=== PATIENT | female | born 2000 | race African-American/Black ===

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

== ENCOUNTER 2021-09-02 23:57 | Emergency (ER) | payer BC ==
[~2021-09-02] VITALS: Ht 157.5 cm; Wt 67.0 kg
[~2021-09-02 23:57] MED LIST changes: +IBUPROFEN600 MG PO
[2021-09-03 00:56] LABS: IMMATURE GRANULOCYTES 0.1 % (0.0-5.0); MEAN CELL VOLUME 93.3 fL CALC (80.0-100.0); MEAN CORPUSCULAR HGB 30.1 pG CALC (26.0-32.0); MEAN CORPUSCULAR HGB CONC 32.2 g/dL CAL (32.0-36.0); NEUT# 5.85 thou/uL (2.00-7.15); RED BLOOD COUNT 3.56 mill/uL (4.20-5.60); RED CELL DISTRI WIDTH 12.7 % (11.5-15.5)
[2021-09-03 01:00] LABS: HEMATOCRIT 33.2 % (37.0-47.0); HEMOGLOBIN 10.7 g/dl (12.0-16.0)
[2021-09-03 01:13] LABS: ALBUMIN 4.4 g/dL (3.2-5.0); ANION GAP 14 (6-22 (CALC)); BILIRUBIN, TOTAL 0.3 mg/dL (0.0-1.4); BUN 8 mg/dL (7-17); BUN/CREATININE RATIO 14 (12-20 (CALC)); CARBON DIOXIDE 24 mmol/l (22-30); CHLORIDE 106 mmol/l (95-108); CREATININE 0.5 mg/dL (0.5-1.0); ETHYL ALCOHOL 210 mg/dl (0-30); GFR > 60 ML/MIN (>=60 (CALC)); GFR FOR AFR.AMER. > 60 ML/MIN (>=60 (CALC)); POTASSIUM 3.6 mmol/l (3.5-5.1); SGOT/AST 28 u/l (14-36); SODIUM 140 mmol/l (137-146); TOTAL PROTEIN 7.8 g/dL (6.3-8.2)
[2021-09-03 01:21] LABS: ALKALINE PHOSPHATASE 39 u/l (38-126)
[2021-09-03 02:49] LABS: URINE BILIRUBIN - DIPSTICK NEGATIVE (NEGATIVE); URINE BLOOD DIPSTICK NEGATIVE (NEGATIVE); URINE COLOR YELLOW; URINE GLUCOSE - DIPSTICK NEGATIVE (NEGATIVE); URINE KETONE NEGATIVE (NEGATIVE); URINE LEUK ESTERASE NEGATIVE (NEGATIVE); URINE NITRITE - DIPSTICK NEGATIVE (Negative); URINE PROTEIN - DIPSTICK NEGATIVE (NEG-TRACE); URINE UROBILINOGEN - DIPSTICK 0.2 E.U./dL (0.2)
[2021-09-03] MEDS ORDERED: OB COMPLET2 PO (03:01)
[2021-09-03 03:21] VITALS: BP 106/53
== END 2021-09-03 03:36 | disposition home or self-care (01) | DRG 833 ==
LOC: ED 23:57
PROVIDERS: Family Medicine
DX: O99.310 Alcohol use complicating pregnancy, unspecified trimester (principal); F10.129 Alcohol abuse with intoxication, unspecified; Z3A.00 Weeks of gestation of pregnancy not specified

== ENCOUNTER 2023-02-22 14:00 | Emergency (ER) | payer BC ==
[~2023-02-22] VITALS: Ht 157.5 cm; Wt 70.4 kg
[~2023-02-22 14:00] MED LIST changes: +OB COMPLET2 PO
[2023-02-22 14:27] VITALS: BP 130/88
[2023-02-22 14:30] VITALS: BP 123/74
[2023-02-22 15:00] VITALS: BP 133/87
[2023-02-22 15:29] LABS: BASO% 0.6 % (0-3); EOS% 1.4 % (0-8); IMMATURE GRANULOCYTES 0.1 % (0.0-5.0); LYMPH% 23.9 % (15-41); MEAN CELL VOLUME 92.1 fL CALC (80.0-100.0); MEAN CORPUSCULAR HGB 28.7 pG CALC (26.0-32.0); MEAN CORPUSCULAR HGB CONC 31.2 g/dL CAL (32.0-36.0); MONO% 5.6 % (2-13); NEUT# 5.48 thou/uL (2.00-7.15); NEUT% 68.4 % (42-76); RED BLOOD COUNT 4.67 mill/uL (4.20-5.60); RED CELL DISTRI WIDTH 12.5 % (11.5-15.5)
[2023-02-22 15:30] LABS: HEMOGLOBIN 13.4 g/dl (12.0-16.0)
[2023-02-22 15:38] LABS: ALBUMIN 4.8 g/dL (3.2-5.0); ALKALINE PHOSPHATASE 95 u/l (38-126); ANION GAP 15 (6-22 (CALC)); BILIRUBIN, TOTAL 0.5 mg/dL (0.02-1.3); BUN 6 mg/dL (7-17); BUN/CREATININE RATIO 9 (12-20 (CALC)); CARBON DIOXIDE 27 mmol/l (22-30); CHLORIDE 103 mmol/l (95-108); CREATININE 0.7 mg/dL (0.5-1.0); GFR FOR AFR.AMER. > 60 ML/MIN (>=60 (CALC)); GFR OTHER RACES > 60 ML/MIN (>=60 (CALC)); POTASSIUM 4.5 mmol/l (3.5-5.1); SGOT/AST 22 u/l (14-36); SODIUM 140 mmol/l (137-146); TOTAL PROTEIN 8.5 g/dL (6.3-8.2)
[2023-02-22] MEDS ORDERED: MAXITROL0.1 % OS (17:45)
[2023-02-22] MEDS ORDERED: REGLAN10 MG PO (17:45)
[2023-02-22] MEDS ORDERED: FIORICET PO (17:45)
[2023-02-22] MEDS ORDERED: NAPROXEN500 MG PO (17:45)
[2023-02-22 18:01] VITALS: BP 133/87
== END 2023-02-22 18:16 | disposition home or self-care (01) | DRG 103 ==
LOC: ED 14:00
PROVIDERS: Nurse Practitioner
DX: G43.B0 Ophthalmoplegic migraine, not intractable (principal); S05.02XA Injury of conjunctiva and corneal abrasion without foreign body, left eye, initial encounter; X58.XXXA Exposure to other specified factors, initial encounter

== ENCOUNTER 2024-01-09 19:32 | Emergency (ER) | payer BC ==
[~2024-01-09] VITALS: Ht 157.5 cm; Wt 74.8 kg
[~2024-01-09 19:32] MED LIST changes: +FIORICET PO; +MAXITROL0.1 % OS; +NAPROXEN500 MG PO; +REGLAN10 MG PO
[2024-01-09] MEDS ORDERED: GENTAMICIN SULFATE (OPHTH) 5 ML BTL OD ONE (20:55)
[2024-01-09] MEDS ORDERED: IBUPROFEN 800 MG/TAB PO ONE (20:55)
[2024-01-09] MEDS ORDERED: MOTRIN800 MG PO ×2 (20:58→21:29)
[2024-01-09] MEDS ORDERED: GENTAMICIN0.3 % OD ×2 (20:58→21:29)
[2024-01-09 21:11] VITALS: BP 119/86
== END 2024-01-09 21:37 | disposition home or self-care (01) | DRG 125 ==
LOC: ED 19:32
DX: H00.013 Hordeolum externum right eye, unspecified eyelid (principal); G43.B0 Ophthalmoplegic migraine, not intractable

== ENCOUNTER 2024-11-18 00:14 | Emergency (ER) | payer BC ==
[~2024-11-18] VITALS: Ht 157.5 cm; Wt 74.0 kg
[~2024-11-18 00:14] MED LIST changes: +GENTAMICIN0.3 % OD; +MOTRIN800 MG PO
[2024-11-18] MEDS ORDERED: OXYMETAZOLINE HCL 15 ML/BTL ONE (00:30)
[2024-11-18] MEDS ORDERED: TAM75CAP PO (01:22)
[2024-11-18] MEDS ORDERED: OSELTAMIVIR PHOSPHATE 75 MG/TAB CAP PO ONE (01:25)
[2024-11-18 01:37] VITALS: BP 123/78
== END 2024-11-18 01:37 | disposition home or self-care (01) | DRG 151 ==
LOC: ED 00:14
DX: R04.0 Epistaxis (principal); J10.1 Influenza due to other identified influenza virus with other respiratory manifestations; Z20.822 Contact with and (suspected) exposure to COVID-19